=== PATIENT | female | born 1995 | race Caucasian/White ===

== ENCOUNTER 2023-05-21 21:10 | Emergency (ER) | payer BC ==
[~2023-05-21] VITALS: Ht 175.3 cm; Wt 68.0 kg
[2023-05-21 21:31] VITALS: BP 111/65; PULSE 68; RESP 16; TEMP 97.5; O2SAT 99
== END 2023-05-21 22:17 | disposition left against medical advice (07) ==
LOC: MED 21:10
DX: R05.9 Cough, unspecified (principal); Z53.21 Procedure and treatment not carried out due to patient leaving prior to being seen by health care provider
CPT/HCPCS: 99281